=== PATIENT | male | born 1960 | race Caucasian/White ===

== ENCOUNTER → 2016-04-13 | Outpatient (CLI) | payer OTHER ==
--- NOTE | 2016-04-13 13:47 | REP ---
MAXILLOFACIAL CT WITHOUT CONTRAST: HISTORY: Chronic maxillary sinusitis. Mucosal thickening is present in the right maxillary, ethmoid, and frontal sinuses. There is almost complete opacification of the right maxillary sinus. Moderate mucosal thickening is present in the right ethmoid sinus. There is complete opacification of the right frontal sinus. The remaining sinuses are clear. Mucosal thickening involves the right osteomeatal unit. The left osteomeatal unit is patent. The middle and inferior nasal turbinates are partially paradoxical. There is minimal deviation of the nasal septum to the right. The cribriform plate, medial thornton of the orbits, and optic canals are intact. The carotid canals form a segment of the posterolateral thornton of the sphenoid sinus. IMPRESSION: Sinus mucosal thickening as described above. Signed by Boyd Kirkland MD 04/13/2016 02:18 P
== END ==
LOC: M RAD 13:02
PROVIDERS: ATTEND Specialist
DX: J32.0 Chronic maxillary sinusitis (principal)

== ENCOUNTER → 2016-12-16 | Outpatient (CLI) | payer OTHER ==
[2016-12-16 13:43] LABS: ALBUMIN/GLOBULIN RATIO 1.38 (1.00-1.93); ALKALINE PHOSPHATASE 97 U/L (45-117); ALT/SGPT 23 U/L (12-78); ANION GAP 5 MEQ/L (8-16); AST/SGOT 14 U/L (15-37); BILIRUBIN,TOTAL 0.5 MG/DL (0.2-1.0); BLOOD UREA NITROGEN 15 MG/DL (7-18); CALCIUM LEVEL 9.8 MG/DL (8.5-10.1); CARBON DIOXIDE LEVEL 31 MEQ/L (21-32); CHLORIDE LEVEL 105 MEQ/L (98-107); CHOLESTEROL LEVEL 175 MG/DL (<200); CREATININE FOR GFR 1.05 MG/DL (0.70-1.30); GLOMERULAR FILTRATION RATE > 60.0 (>56); GLUCOSE, FASTING 95 MG/DL (70-105); SODIUM LEVEL 141 MEQ/L (136-145); TOTAL PROTEIN 6.9 GM/DL (6.4-8.2); TRIGLYCERIDES LEVEL 160 MG/DL (<150)
== END ==
LOC: M WUC 08:32
PROVIDERS: ATTEND Internal Medicine
DX: E78.00 Pure hypercholesterolemia, unspecified (principal)

== ENCOUNTER → 2017-03-09 | Outpatient (CLI) | payer OTHER ==
[2017-03-09 20:48] LABS: HEMATOCRIT 43.1 % (42.0-52.0)
[2017-03-09 21:04] LABS: ALT/SGPT 33 U/L (12-78); AST/SGOT 20 U/L (7-37); PROSTATIC SPECIFIC AG MONITOR 1.43 NG/ML (< 4.0)
[2017-03-09 21:16] LABS: TESTOSTERONE 174 NG/DL (241-827)
== END ==
LOC: M WUC 17:28
DX: Z12.5 Encounter for screening for malignant neoplasm of prostate (principal); R94.8 Abnormal results of function studies of other organs and systems; E29.1 Testicular hypofunction
CPT/HCPCS: 84460

== ENCOUNTER → 2018-11-06 | Outpatient (CLI) | payer OTHER ==
[2018-11-06 20:41] LABS: ALT/SGPT 43 U/L (12-78)
[2018-11-06 20:49] LABS: TESTOSTERONE 329 NG/DL (241-827)
[2018-11-09 00:07] LABS: PSA TOTAL 1.7 ng/mL (0.0-4.0)
== END ==
LOC: M WUC 17:12
PROVIDERS: ATTEND Urology
DX: R94.8 Abnormal results of function studies of other organs and systems (principal); Z12.5 Encounter for screening for malignant neoplasm of prostate; N52.1 Erectile dysfunction due to diseases classified elsewhere

== ENCOUNTER → 2019-07-02 | Outpatient (CLI) | payer OTHER ==
[2019-07-02 16:24] LABS: ALBUMIN 3.7 GM/DL (3.2-5.2); ALT/SGPT 43 U/L (12-78); BILIRUBIN,TOTAL 0.3 MG/DL (0.2-1.0); BLOOD UREA NITROGEN 13 MG/DL (7-18); CALCIUM LEVEL 9.3 MG/DL (8.8-10.2); CARBON DIOXIDE LEVEL 27 MEQ/L (21-32); CHLORIDE LEVEL 111 MEQ/L (98-107); CREATININE FOR GFR 0.96 MG/DL (0.70-1.30); GLOMERULAR FILTRATION RATE > 60.0 (>49); GLUCOSE, FASTING 116 MG/DL (70-100); POTASSIUM SERUM 4.3 MEQ/L (3.5-5.1); SODIUM LEVEL 146 MEQ/L (136-145); TOTAL PROTEIN 6.6 GM/DL (6.4-8.2)
== END ==
LOC: M PLALAB 14:08
PROVIDERS: ATTEND Internal Medicine
DX: I10 Essential (primary) hypertension (principal)

== ENCOUNTER → 2021-04-02 | Outpatient (CLI) | payer OTHER ==
[2021-04-02 16:00] LABS: BASO # 0.1 10^3/uL (0.0-0.2); BASO % 0.7 % (0.0-1.0); EOS # 0.3 10^3/uL (0.0-0.5); EOS % 2.1 % (0.0-3.0); HEMOGLOBIN 14.9 g/dl (13.5-17.5); LYMPH # 3.5 10^3/uL (1.5-5.0); LYMPH % 26.6 % (24.0-44.0); MEAN CORPUSCULAR HEMOGLOBIN 29.4 pg (27.0-33.0); MEAN CORPUSCULAR HGB CONC 31.7 g/dl (32.0-36.5); MEAN CORPUSCULAR VOLUME 92.7 fl (80.0-96.0); MONO % 7.5 % (2.0-8.0); NEUTROPHILS # 8.3 10^3/uL (1.5-8.5); NEUTROPHILS % 62.8 % (36.0-66.0); PLATELET COUNT, AUTOMATED 357 10^3/uL (150-450); RED BLOOD COUNT 5.07 10^6/uL (4.30-6.10); WHITE BLOOD COUNT 13.3 10^3/uL (4.0-10.0)
[2021-04-02 16:04] LABS: ALBUMIN 4.1 GM/DL (3.2-5.2); ALT/SGPT 43 U/L (12-78); BILIRUBIN,TOTAL 0.2 MG/DL (0.2-1.0); BLOOD UREA NITROGEN 24 MG/DL (7-18); CALCIUM LEVEL 10.4 MG/DL (8.8-10.2); CARBON DIOXIDE LEVEL 33 MEQ/L (21-32); CHLORIDE LEVEL 105 MEQ/L (98-107); CHOLESTEROL LEVEL 226 MG/DL (<200); CHOLESTEROL RISK RATIO 5.136 (<5); CREATININE FOR GFR 1.24 MG/DL (0.70-1.30); GLOMERULAR FILTRATION RATE > 60.0 (>49); GLUCOSE, FASTING 103 MG/DL (70-100); HDL CHOLESTEROL 44 MG/DL (>40); LDL CHOLESTEROL 136 MG/DL (<100); NON-HDL-C 182 MG/DL; POTASSIUM SERUM 4.2 MEQ/L (3.5-5.1); SODIUM LEVEL 140 MEQ/L (136-145); TOTAL PROTEIN 7.3 GM/DL (6.4-8.2); TRIGLYCERIDES LEVEL 229 MG/DL (<150)
[2021-04-02 16:58] LABS: HEMOGLOBIN A1c 5.9 %
== END ==
LOC: M WUC 13:00
PROVIDERS: ATTEND Student in an Organized Health Care Education/Training Program
DX: Z00.00 Encounter for general adult medical examination without abnormal findings (principal); Z13.1 Encounter for screening for diabetes mellitus; I10 Essential (primary) hypertension

== ENCOUNTER → 2021-12-08 | Outpatient (CLI) | payer OTHER ==
[2021-12-08 17:14] LABS: ALT/SGPT 41 U/L (12-78)
[2021-12-08 17:38] LABS: TESTOSTERONE 349 NG/DL (241-827)
[2021-12-10 13:08] LABS: PSA TOTAL 1.8 ng/mL (0.0-4.0)
== END ==
LOC: M WUC 13:07
PROVIDERS: ATTEND Urology
DX: R94.8 Abnormal results of function studies of other organs and systems (principal)

== ENCOUNTER → 2022-07-29 | Outpatient (CLI) | payer OTHER ==
[2022-07-29 16:40] LABS: BASO # 0.1 10^3/uL (0.0-0.2); BASO % 0.6 % (0.0-1.0); EOS # 0.3 10^3/uL (0.0-0.5); EOS % 2.4 % (0.0-3.0); HEMATOCRIT 49.1 % (42.0-52.0); HEMOGLOBIN 15.1 g/dl (13.5-17.5); LYMPH # 3.4 10^3/uL (1.5-5.0); LYMPH % 29.8 % (24.0-44.0); MEAN CORPUSCULAR HEMOGLOBIN 28.7 pg (27.0-33.0); MEAN CORPUSCULAR HGB CONC 30.8 g/dl (32.0-36.5); MEAN CORPUSCULAR VOLUME 93.2 fl (80.0-96.0); MONO % 8.7 % (2.0-8.0); NEUTROPHILS # 6.6 10^3/uL (1.5-8.5); NEUTROPHILS % 58.2 % (36.0-66.0); PLATELET COUNT, AUTOMATED 303 10^3/uL (150-450); RED BLOOD COUNT 5.27 10^6/uL (4.30-6.10); WHITE BLOOD COUNT 11.3 10^3/uL (4.0-10.0)
[2022-07-29 16:57] LABS: HEMOGLOBIN A1c 5.5 % (4.0-6.0)
[2022-07-29 16:58] LABS: ALBUMIN 4.2 G/DL (3.2-5.2); ALKALINE PHOSPHATASE 105 U/L (46-116); ALT/SGPT 44 U/L (7.0-40); AST/SGOT 25 U/L (<34); BILIRUBIN,TOTAL 0.4 MG/DL (0.3-1.2); BLOOD UREA NITROGEN 23 MG/DL (9-23); CALCIUM LEVEL 10.4 MG/DL (8.3-10.6); CARBON DIOXIDE LEVEL 28 MMOL/L (20-31); CHLORIDE LEVEL 106 MMOL/L (98-107); CHOLESTEROL LEVEL 229 MG/DL (<200); CHOLESTEROL RISK RATIO 5.78 (<5); CREATININE FOR GFR 1.15 MG/DL (0.70-1.30); GLOMERULAR FILTRATION RATE > 60.0 (>49); GLUCOSE, FASTING 89 MG/DL (74-106); HDL CHOLESTEROL 39.6 MG/DL (>40); LDL CHOLESTEROL 139.6 MG/DL (<100); NON-HDL-C 189.4 MG/DL; POTASSIUM SERUM 4.3 MMOL/L (3.5-5.1); SODIUM LEVEL 141 MMOL/L (136-145); TRIGLYCERIDES LEVEL 249 MG/DL (<150)
== END ==
LOC: M WUC 13:13
PROVIDERS: ATTEND Student in an Organized Health Care Education/Training Program
DX: D72.829 Elevated white blood cell count, unspecified (principal); R73.03 Prediabetes; I10 Essential (primary) hypertension

== ENCOUNTER → 2022-11-28 | Outpatient (CLI) | payer OTHER ==
[2022-11-28 17:20] LABS: PROSTATIC SPECIFIC AG MONITOR 1.48 NG/ML (< 4.00)
== END ==
LOC: M WUC 13:00
PROVIDERS: ATTEND Urology
DX: R94.8 Abnormal results of function studies of other organs and systems (principal)

== ENCOUNTER → 2023-06-20 | Outpatient (CLI) | payer OTHER ==
[2023-06-20 11:39] LABS: ALBUMIN 4.1 G/DL (3.2-5.2); BILIRUBIN,DIRECT 0.1 MG/DL (<0.4); BILIRUBIN,TOTAL 0.4 MG/DL (0.3-1.2); TOTAL PROTEIN 7.1 G/DL (5.7-8.2)
== END ==
LOC: M WUC 08:54
PROVIDERS: ATTEND Physician Assistant
DX: E29.1 Testicular hypofunction (principal)

== ENCOUNTER 2023-09-09 07:39 | Emergency (ER) | payer OTHER ==
[~2023-09-09] VITALS: Ht 193 cm; Wt 106.8 kg
[2023-09-09] MEDS ORDERED: OMEP-173 (08:03)
[2023-09-09] MEDS ORDERED: MELO15TA28 (08:03)
[2023-09-09] MEDS ORDERED: BUPR-71 (08:03)
[2023-09-09] MEDS ORDERED: AMLO1TAB25 (08:03)
[2023-09-09] MEDS ORDERED: LISI10TA22 (08:03)
[2023-09-09] MEDS ORDERED: TEST30SO (08:03)
[2023-09-09 08:51] LABS: BASO # 0.1 10^3/uL (0.0-0.2); BASO % 0.5 % (0.0-1.0); EOS # 0.1 10^3/uL (0.0-0.5); EOS % 0.4 % (0.0-3.0); HEMATOCRIT 48.2 % (42.0-52.0); HEMOGLOBIN 16.2 g/dl (13.5-17.5); LYMPH # 2.1 10^3/uL (1.5-5.0); LYMPH % 13.8 % (24.0-44.0); MEAN CORPUSCULAR HEMOGLOBIN 29.3 pg (27.0-33.0); MEAN CORPUSCULAR HGB CONC 33.6 g/dl (32.0-36.5); MEAN CORPUSCULAR VOLUME 87.2 fl (80.0-96.0); MONO % 6.4 % (2.0-8.0); NEUTROPHILS # 11.7 10^3/uL (1.5-8.5); NEUTROPHILS % 78.5 % (36.0-66.0); PLATELET COUNT, AUTOMATED 300 10^3/uL (150-450); RED BLOOD COUNT 5.53 10^6/uL (4.30-6.10); WHITE BLOOD COUNT 14.9 10^3/uL (4.0-10.0)
[2023-09-09] MEDS: NS 1,000 ML IV ONE (08:53)
[2023-09-09] MEDS: ONDANSETRON 4MG 2ML VIAL IV ONE (08:53)
[2023-09-09] MEDS: MORPHINE 4 MG/ML 1ML VIAL IV ONE ×2 (08:53→09:40)
[2023-09-09] MEDS ORDERED: ISOVUE-370 76% 100ML VIAL As Ordered ONE (09:08)
[2023-09-09 09:13] LABS: ALBUMIN 4.2 G/DL (3.2-5.2); BILIRUBIN,DIRECT 0.2 MG/DL (<0.4); BILIRUBIN,TOTAL 0.8 MG/DL (0.3-1.2); CREATININE FOR GFR 1.31 MG/DL (0.70-1.30); GLOMERULAR FILTRATION RATE 58.5 (>49); POTASSIUM SERUM 4.2 MMOL/L (3.5-5.1); TOTAL PROTEIN 7.3 G/DL (5.7-8.2)
[2023-09-09] MEDS: PIPERACILLIN/TAZOBACTAM SOD 4.5 GM in D5W MINI-BAG PLUS 50 ML IV ONE (09:49)
[2023-09-09] MEDS: KETOROLAC 30 MG/ML 1ML VIAL IV ONE (10:34)
[2023-09-09] MEDS: NS 500 ML IV ONE (10:34)
[2023-09-09] MEDS ORDERED: ONDA-282 PO (12:02)
[2023-09-09] MEDS ORDERED: FLOM0.4C39 PO (12:02)
[2023-09-09] MEDS ORDERED: IBUP-1022 PO (12:02)
[2023-09-09] MEDS ORDERED: PERC5TAB12 PO (12:03)
[2023-09-09 12:12] VITALS: BP 145/90; TEMP 97; O2SAT 98
[2023-09-09] MEDS: TAMSULOSIN 0.4 MG CAP PO ONE (12:16)
== END 2023-09-09 12:36 | disposition home or self-care (01) ==
LOC: M ED 07:39
DX: N20.1 Calculus of ureter (principal); N23 Unspecified renal colic; N13.30 Unspecified hydronephrosis; I10 Essential (primary) hypertension; F32.A Depression, unspecified; G47.33 Obstructive sleep apnea (adult) (pediatric); F17.200 Nicotine dependence, unspecified, uncomplicated; F10.10 Alcohol abuse, uncomplicated; M54.50 Low back pain, unspecified; Z87.442 Personal history of urinary calculi; Z79.811 Long term (current) use of aromatase inhibitors; Z79.83 Long term (current) use of bisphosphonates; Z79.899 Other long term (current) drug therapy
CPT/HCPCS: 71045; 74177; 80047; 80048; 80076; 81001; 83605; 83690; 85025; 87040; 93041; 96361; 96365; 96375; 96376; 99285; J1885; J2405; J2543; Q9967

== ENCOUNTER → 2024-03-06 | Outpatient (CLI) | payer OTHER ==
[~2024-03-06] MED LIST: AMLO1TAB25; BUPR-71; FLOM0.4C39 PO; IBUP-1022 PO; LISI10TA22; MELO15TA28; OMEP-173; ONDA-282 PO; PERC5TAB12 PO; TEST30SO
[2024-03-06 16:33] LABS: HEMATOCRIT 48.5 % (42.0-52.0); HEMOGLOBIN 15.7 g/dl (13.5-17.5)
[2024-03-06 16:40] LABS: PROSTATIC SPECIFIC AG MONITOR 1.43 NG/ML (< 4.00)
== END ==
LOC: M WUC 12:43
PROVIDERS: ATTEND Urology
DX: E29.1 Testicular hypofunction (principal); R94.8 Abnormal results of function studies of other organs and systems; Z79.899 Other long term (current) drug therapy

== ENCOUNTER → 2024-04-30 | Outpatient (CLI) | payer OTHER ==
[2024-04-30 19:27] LABS: ALBUMIN 3.8 G/DL (3.2-5.2); ALKALINE PHOSPHATASE 97 U/L (40-129); ALT/SGPT 35 U/L (7.0-40); AST/SGOT 27 U/L (<34); BILIRUBIN,DIRECT < 0.1 MG/DL (<0.4); BILIRUBIN,TOTAL 0.3 MG/DL (0.3-1.2); BLOOD UREA NITROGEN 20 MG/DL (9-23); CALCIUM LEVEL 10.1 MG/DL (8.3-10.6); CARBON DIOXIDE LEVEL 30 MMOL/L (20-31); CHLORIDE LEVEL 104 MMOL/L (98-107); CREATININE FOR GFR 1.06 MG/DL (0.70-1.30); GLOMERULAR FILTRATION RATE > 60.0 (>49); GLUCOSE, FASTING 108 MG/DL (74-106); POTASSIUM SERUM 4.2 MMOL/L (3.5-5.1); SODIUM LEVEL 142 MMOL/L (136-145); TOTAL PROTEIN 6.9 G/DL (5.7-8.2)
[2024-04-30 19:29] LABS: TOTAL 25(OH) VITAMIN D 25.6 NG/ML (20.0-100.0); VITAMIN B12 LEVEL 400 PG/ML (211-911)
[2024-05-08 19:19] LABS: ALPHA 2-MACROGLOBULINS,QN 162 mg/dL (106-279); ALT (SGPT) P5P 27 U/L (9-46); APOLIPOPROTEIN A-1 137 mg/dL (94-176); BILIRUBIN, TOTAL 0.3 mg/dL (0.2-1.2); FIBROSIS SCORE 0.16; FIBROSIS STAGE NO FIBROSIS (F0); GGT 30 U/L (3-70); HAPTOGLOBIN 170 mg/dL (43-212); NECROINFLAM ACT GRADE NO ACTIVITY (A0)
== END ==
LOC: M WUC 12:32
PROVIDERS: ATTEND Physician Assistant
DX: K21.9 Gastro-esophageal reflux disease without esophagitis (principal); Z80.0 Family history of malignant neoplasm of digestive organs; R79.89 Other specified abnormal findings of blood chemistry

== ENCOUNTER → 2024-11-06 | Outpatient (CLI) | payer OTHER ==
[~2024-11-06] MED LIST changes: -FLOM0.4C39 PO; -IBUP-1022 PO; +IBUP600T42 PO; +TAMS-18 PO
== END ==
LOC: M RAD 08:25
PROVIDERS: ATTEND Physician Assistant
DX: R19.7 Diarrhea, unspecified (principal); R14.0 Abdominal distension (gaseous)

== ENCOUNTER → 2024-12-02 | Outpatient (CLI) | payer OTHER ==
[2024-12-02 15:12] LABS: ALT/SGPT 30 U/L (7.0-40); AST/SGOT 31 U/L (<34)
[2024-12-02 15:15] LABS: TESTOSTERONE 499 NG/DL (241-827)
== END ==
LOC: M WUC 12:42
PROVIDERS: ATTEND Urology
DX: R94.8 Abnormal results of function studies of other organs and systems (principal)

== ENCOUNTER → 2024-12-09 | Outpatient (CLI) | payer OTHER | LOC: M RAD 13:45 | PROVIDERS: ATTEND Physician Assistant | DX: Z87.442 Personal history of urinary calculi (principal) ==